=== PATIENT | female | born 1940 | race Asian ===

== ENCOUNTER 2018-08-07 05:39 | Day surgery (SDC) | payer MEDICARE ==
[2018-08-07] MEDS ORDERED: SOD CHLORIDE 0.9% 1,000 ML IV (06:00)
[2018-08-07] MEDS: TROPICAMIDE 1% 15 ML OPH OPER (06:14)
[2018-08-07] MEDS: MOXIFLOXACIN 0.5% 3 ML OPH OPER (06:14)
[2018-08-07] MEDS: DICLOFENAC 0.1% 2.5 ML OPH OPER (06:15)
[2018-08-07] MEDS: CYCLOPENTOLATE/PHENYLEPH 2 ML OPH OPER (06:15)
[2018-08-07] MEDS: CARBACHOL 0.01% 1.5 ML OPH INJ (06:54)
[2018-08-07] MEDS ORDERED: MOXIFLOXACIN 0.5% 3 ML OPH (06:54)
[2018-08-07] MEDS: CEFAZOLIN 1 GM INJ (06:54)
[2018-08-07] MEDS ORDERED: TETRACAINE 0.5% 4 ML OPH (06:54)
[2018-08-07] MEDS ORDERED: LIDOCAINE 4% (MPF) 5 ML INJ (06:54)
[2018-08-07] MEDS ORDERED: NA HYALURONATE/CHONDROITIN 0.5 ML SYG (06:55)
[2018-08-07] MEDS ORDERED: GENTAMICIN 80 MG INJ (06:55)
[2018-08-07] MEDS ORDERED: EPINEPHrine 1 MG INJ (06:55)
[2018-08-07] MEDS: DEXAMETHASONE 4 MG/ML 1 ML INJ (06:55)
[2018-08-07] MEDS ORDERED: SODIUM CL BACTERIOSTATIC 30 ML INJ (07:20)
[2018-08-07] MEDS ORDERED: HYDROmorphONE 1 MG/5 ML IV SYRINGE IV ×2 (07:30)
[2018-08-07] MEDS ORDERED: hydrALAzine 20 MG INJ IV (07:30)
[2018-08-07] MEDS ORDERED: ONDANSETRON 4 MG INJ IV (07:30)
[2018-08-07] MEDS ORDERED: LABETALOL HCL 20MG INJ IV (07:30)
[2018-08-07] MEDS ORDERED: EPHEDrine SULFATE 50 MG/5 ML SYG IV (07:30)
[2018-08-07] MEDS ORDERED: FENTAnyl 50 MCG/ML VIAL IV ×2 (07:30)
[2018-08-07] MEDS ORDERED: METOCLOPRAMIDE 10 MG INJ IV (07:30)
[2018-08-07] MEDS ORDERED: PROPOFOL 20 ML (07:43)
[2018-08-07] MEDS ORDERED: METOCLOPRAMIDE 10 MG INJ (07:43)
[2018-08-07] MEDS ORDERED: ONDANSETRON 4 MG INJ (07:43)
== END 2018-08-07 10:10 | disposition home or self-care (01) ==
LOC: SDS 05:39
DX: H25.11 Age-related nuclear cataract, right eye (principal); I10 Essential (primary) hypertension; E78.5 Hyperlipidemia, unspecified
CPT/HCPCS: 66984